=== PATIENT | male | born 1945 | race Caucasian/White ===

== ENCOUNTER 2022-12-12 11:58 | Outpatient (CLI) | payer MEDICARE, SELFPAY ==
--- NOTE | ~2022-12-12 | PE_ITS ---
EXAMINATION: PET_PETPSMAST_PT DATE: 12/12/2022 14:37 INDICATION: Prostate cancer. TECHNIQUE: 9.380 mCi of piflufolastat F-18 was administered intravenously. Low dose computed tomograp hy (CT) images were acquired from the base of the brain to the proximal thighs for attenuation correc tion and anatomic localization. Automated exposure control was employed. Dose-length product (DLP) wa s 1092 mGy-cm. Positron emission tomography (PET) images were acquired in the same distribution. COMPARISON: None FINDINGS: Head/neck: There are no pathologically enlarged lymph nodes. There is mucosal thickening in the paran sunny sinuses including near complete opacification of left maxillary sinus. There is thickening and s clerosis of the john of left maxillary sinus, consistent with chronic sinusitis. Chest: There is no pneumonia or pleural effusion. The heart size is normal. There are coronary artery calcifications. No pericardial effusion. There are no pathologically enlarged lymph nodes. Abdomen/pelvis/proximal thighs: The liver, gallbladder, spleen, pancreas, adrenal glands, and kidneys are normal. The prostate is moderately enlarged. There is increased activity in the prostate bilater ally with maximum SUV of 27.8. There is diverticulosis of the colon without evidence of diverticuliti s. The appendix is normal. There are no dilated loops of bowel. There are no pathologically enlarged lymph nodes. There is no free intraperitoneal fluid. There is a left inguinal hernia containing fat. There is no osseous malignancy. IMPRESSION: 1. Moderately enlarged prostate with increased activity, consistent with primary malignancy. No evide nce of metastatic disease. Reviewed, dictated and finalized at location A. IMPRESSION: 1. Moderately enlarged prostate with increased activity, consistent with primar y malignancy. No evidence of metastatic disease.
== END 2022-12-12 11:59 | disposition home or self-care (01) ==
PROVIDERS: PCP Family Medicine Adolescent Medicine; Visit Provider Urology
DX: C61 Malignant neoplasm of prostate (principal); N40.0 Benign prostatic hyperplasia without lower urinary tract symptoms
CPT/HCPCS: 78815; A9595

== ENCOUNTER 2023-04-18 00:28 | Day surgery (SDC) | payer MEDICARE, SELFPAY ==
[2023-04-02 14:15] VITALS: BMI 35.4
--- NOTE | 2023-04-16 12:21 | SUR.PREOP ---
Patient called regarding upcoming procedure. Reviewed preop instructions, appointment times, and procedure prep.
[2023-04-18 10:25] VITALS: BP 135/80; PULSE 94; RESP 20; TEMP 37.2; O2SAT 96; BMI 35.4
--- NOTE | 2023-04-18 10:41 | PM.HPGS ---
History of Present Illness History of Present Illness Consent: Risks, benefits, and alternatives have been discussed and questions answered. Patient agrees to proceed with procedure. Chief complaint: hx of colon polyps Narrative: Diego Mora is a 77 year old male Presents for screening colonoscopy. Patient's current weight appetite and bowel movements are normal. Patient denies abdominal pain. He has had no bleeding. Family history noncontributory. Patient does have a history of large colon polyps in the past. Family history is significant for colon cancer. Patient presents today for surveillance colonoscopy. Review of Systems Review of Systems: Review of systems noncontributory. PMFSH Past Medical History Medical History (Updated 04/18/23 @ 10:43 by Quique Castrejon MD) Adenomatous polyp Broken arm Rt Family History Family History (Updated 01/17/22 @ 13:44 by Cristel Merino MA) Father Cerebrovascular accident Mother Alzheimers disease Sibling Colon cancer Social History Social History (Updated 01/28/23 @ 08:44 by Kisha Hernandez) Smoking status: Former smoker Tobacco type: cigarettes Substance use type: does not use Lack of Transportation: YES Lack of Food: Never True Current Housing: I Have Housing Concerned About Future Housing: No Difficulty Paying Gas/Electric Bills: No Difficulty Paying for Meds: No Currently Unemployed: No Education: High School Diploma/GED Difficulty w/ Childcare or Family Care: No Living arrangements: alone Spiritual care concerns: No Meds Home Medications and Allergies Home Medications Medication Instructions Recorded Confirmed Type atorvastatin 40 mg tablet 40 mg PO DAILY #90 tabs 11/29/22 04/02/23 Rx metoprolol succinate 50 mg 75 mg PO DAILY #135 tabs 11/29/22 04/18/23 Rx tablet,extended release 24 hr tamsulosin 0.4 mg capsule 0.4 mg PO BID #180 caps 01/28/23 04/02/23 Rx diclofenac sodium 75 mg 75 mg PO BID #180 tabs 04/04/23 04/18/23 Rx tablet,delayed release hydrochlorothiazide 25 mg tablet 25 mg PO DAILY #90 tabs 04/04/23 04/18/23 Rx hydrocortisone-acetic acid 1 %-2 % 3 drp EACH EAR QID #10 mL 04/04/23 04/18/23 Rx ear drops losartan 100 mg tablet 100 mg PO DAILY #90 tabs 04/15/23 04/18/23 Rx Allergies Allergy/AdvReac Type Severity Reaction Status Date / Time No Known Allergies Allergy Verified 04/18/23 10:22 Vital Signs Vital Signs - 24 hr 04/18/23 10:25 Temperature 98.9 F Pulse Rate 94 Respiratory Rate 20 Blood Pressure 135/80 Pulse Oximetry 96 Oxygen Delivery Room Air Exam Narrative: Physical exam reveals patient to be alert. Vital signs stable. HEENT exam is unremarkable. Patient is anicteric. Lungs are clear to auscultation and percussion. Heart is without murmur or extra sounds. Abdomen bowel sounds are present soft nontender with no organomegaly. Digital external rectal exam normal. Assessment and Plan Assessment and plan (1) History of colon polyps: Code(s): Z86.010 - Personal history of colonic polyps Status: Acute Assessment and Plan: Patient has a history of colon polyps on several previous occasions. Plans for surveillance colonoscopy now and every 3-5 years.
[2023-04-18] MEDS: LACTATED RINGERS 1,000 ML 150 ML IV CONT (10:42)
--- NOTE | 2023-04-18 11:06 | P.PNAN_ITS ---
Anes - Initial Pre Proc Eval Procedure: Operation Date: 04/18/23 11:30 Proposed Procedures p Colonoscopy - Quique Castrejon MD Date/Time: 04/18/23 11:06 Surgeon: Quique Castrejon MD Pre Op Diagnosis: hx of colon polyps Patient Data Age: 77 Gender: M Height: 1.75 m Weight: 109 kg Last Vital Signs Temp 98.9 F 04/18/23 10:25 Pulse 94 04/18/23 10:25 Resp 20 04/18/23 10:25 BP 135/80 04/18/23 10:25 Pulse Ox 96 04/18/23 10:25 O2 Del Method Room Air 04/18/23 10:25 Allergies Allergy/AdvReac Type Severity Reaction Status Date / Time No Known Allergies Allergy Verified 04/18/23 10:22 Home Medications Medication Instructions Recorded Confirmed Type atorvastatin 40 mg tablet 40 mg PO DAILY #90 tabs 11/29/22 04/02/23 Rx metoprolol succinate 50 mg 75 mg PO DAILY #135 tabs 11/29/22 04/18/23 Rx tablet,extended release 24 hr tamsulosin 0.4 mg capsule 0.4 mg PO BID #180 caps 01/28/23 04/02/23 Rx diclofenac sodium 75 mg 75 mg PO BID #180 tabs 04/04/23 04/18/23 Rx tablet,delayed release hydrochlorothiazide 25 mg tablet 25 mg PO DAILY #90 tabs 04/04/23 04/18/23 Rx hydrocortisone-acetic acid 1 %-2 % 3 drp EACH EAR QID #10 mL 04/04/23 04/18/23 Rx ear drops losartan 100 mg tablet 100 mg PO DAILY #90 tabs 04/15/23 04/18/23 Rx Patient hx anesthesia problems: none Family hx anesthesia problems: none Results Review: All pre-operative results and documents have been reviewed as part of the pre- operative evaluation. PMFSH Past Medical History Medical History (Updated 04/18/23 @ 10:43 by Quique Castrejon MD) Adenomatous polyp Broken arm Rt Family History Family History (Updated 01/17/22 @ 13:44 by Cristel Merino MA) Father Cerebrovascular accident Mother Alzheimers disease Sibling Colon cancer Social History Social History (Updated 01/28/23 @ 08:44 by Kisha Hernandez) Smoking status: Former smoker Tobacco type: cigarettes Substance use type: does not use Lack of Transportation: YES Lack of Food: Never True Current Housing: I Have Housing Concerned About Future Housing: No Difficulty Paying Gas/Electric Bills: No Difficulty Paying for Meds: No Currently Unemployed: No Education: High School Diploma/GED Difficulty w/ Childcare or Family Care: No Living arrangements: alone Spiritual care concerns: No Anes - Eval Final PreProcedure Day of Procedure 04/18/23 11:06 Patient weight: obese Heart: regular rate and rhythm Lungs: clear to auscultation Airway: Mallampati scale class III Neurological: alert and oriented Last oral intake: >/= 8 hours ASA classification: III Emergent: no Anesthetic plan: proceed Anesthesia type and monitoring: general GIVS and standard monitoring Results Review: All pre-operative results and documents have been reviewed as part of the pre- operative evaluation. Informed Consent: The patient's anesthetic plan and its attendant risks and benefits were discussed with the patient/family/POA. Questions were solicited and answers provided to the satisfaction of the patient/family/POA.
[2023-04-18 11:27] VITALS: BP 95/67; PULSE 86; RESP 22; O2SAT 92
[2023-04-18 11:37] VITALS: BP 117/73; PULSE 77; RESP 20; O2SAT 93
[2023-04-18 11:47] VITALS: BP 127/66; PULSE 88; RESP 20; O2SAT 97
--- NOTE | 2023-04-18 14:40 | SUR.PHASEII ---
Called and spoke with patient following transport home after procedure. Patient is settled at home and feels good. No problems or questions at this time.
== END 2023-04-18 12:16 | disposition home or self-care (01) ==
PROVIDERS: PCP Family Medicine Adolescent Medicine; Visit Provider Internal Medicine Gastroenterology
PROC: 0DJD8ZZ Inspection of Lower Intestinal Tract, Via Natural or Artificial Opening Endoscopic (ICD-10-PCS; CPT 45378; principal; 2023-04-18 11:30)
DX: Z12.11 Encounter for screening for malignant neoplasm of colon (principal); K64.8 Other hemorrhoids; K57.30 Diverticulosis of large intestine without perforation or abscess without bleeding; E66.9 Obesity, unspecified; Z68.35 Body mass index [BMI] 35.0-35.9, adult; Z86.010 Personal history of colon polyps; Z87.891 Personal history of nicotine dependence; Z80.0 Family history of malignant neoplasm of digestive organs; Z82.49 Family history of ischemic heart disease and other diseases of the circulatory system
CPT/HCPCS: G0105; J2704; J7120